=== PATIENT | male | born 1985 | race Caucasian/White ===

== ENCOUNTER 2017-03-03 21:04 | Observation (INO) | payer MEDICAID ==
[~2017-03-03] VITALS: Ht 177.8 cm; Wt 100.0 kg
[~2017-03-03 21:04] MED LIST: FLUP1TAB PO; LAMO200T3 PO
[2017-03-03 21:40] LABS: DAU SCREEN DISCLAIMER
[2017-03-03 22:09] LABS: ACETAMINOPHEN < 2 mcg/mL (10-30)
[2017-03-04] MEDS ORDERED: OLANZAPINE 10 MG TABLET PO ONE
[2017-03-04] MEDS ORDERED: ONDANSETRON ODT 4 MG PO PRN (01:00)
[2017-03-04] MEDS ORDERED: ACETAMINOPHEN 325 MG TABLET PO PRN (01:00)
[2017-03-04] MEDS ORDERED: POLYETHYLENE GLYCOL 17 GM PACKET PO PRN (01:00)
[2017-03-04] MEDS ORDERED: NICOTINE 14MG/24 HR PATCH.TD24 TD SCH (01:00)
[2017-03-04] MEDS ORDERED: BISACODYL 10 MG SUPP PR PRN (01:00)
[2017-03-04] MEDS ORDERED: OLANZAPINE 10 MG TABLET PO PRN (01:00)
[2017-03-04 01:05] LABS: HEMOGLOBIN 14.2 g/dL (13.7-18.0)
[2017-03-04 01:16] LABS: ASPARTATE AMINO TRANSFERASE 19 U/L (15-37); BLOOD UREA NITROGEN 16 mg/dL (7-18)
[2017-03-04 08:00] VITALS: BP 100/63
[2017-03-04] MEDS ORDERED: SENNA/DOCUSATE TABLET PO SCH (09:00)
[2017-03-04] MEDS ORDERED: LAMOTRIGINE 200 MG TABLET PO SCH (09:00)
[2017-03-04] MEDS ORDERED: FLUPHENAZINE 1 MG TABLET PO SCH (09:00)
== END 2017-03-04 17:00 ==
LOC: ED 22:17 → EDIP 23:54 → 3E 03-04 01:48
PROVIDERS: ADMIT Internal Medicine; ATTEND Internal Medicine
DX: R45.851 Suicidal ideations (principal); F20.0 Paranoid schizophrenia; Z59.0 Homelessness; F17.210 Nicotine dependence, cigarettes, uncomplicated; Z91.14 Patient's other noncompliance with medication regimen
CPT/HCPCS: 36415; 80053; 80307; 80329; 85025; 99285; G0378; G0480